=== PATIENT | male | born 1945 | race Caucasian/White ===

== ENCOUNTER 2022-01-05 11:40 | Day surgery (SDC) | payer BC ==
[~2022-01-05] VITALS: Ht 177.8 cm; Wt 88.9 kg
[~2022-01-05 11:40] MED LIST: ABAT250V; ATEN50; CARB25; LORA.5; Maxidex15 ML
[2022-01-05] MEDS ORDERED: LATA.005SO (12:23)
[2022-01-05] MEDS ORDERED: OMEP20ER (12:24)
[2022-01-05] MEDS ORDERED: TRIA50 (12:24)
[2022-01-05] MEDS ORDERED: LORA1SY (12:26)
[2022-01-05] MEDS ORDERED: POTASSIUM GLU2.5 MEQ (12:26)
== END 2022-01-05 13:58 | disposition home or self-care (01) ==
LOC: ORSCSDS 11:40
PROVIDERS: Internal Medicine Gastroenterology
PROC: 0DJD8ZZ Inspection of Lower Intestinal Tract, Via Natural or Artificial Opening Endoscopic (ICD-10-PCS; principal; 2022-01-05 13:00)
DX: Z12.11 Encounter for screening for malignant neoplasm of colon (principal); Z86.010 Personal history of colon polyps; K57.30 Diverticulosis of large intestine without perforation or abscess without bleeding; G47.33 Obstructive sleep apnea (adult) (pediatric); Z95.0 Presence of cardiac pacemaker; Z87.891 Personal history of nicotine dependence
CPT/HCPCS: J2704; J7120

== ENCOUNTER → 2022-07-08 | Outpatient (CLI) | payer BC ==
[~2022-07-08] MED LIST changes: +LATA.005SO; +LORA1SY; +OMEP20ER; +POTASSIUM GLU2.5 MEQ; +TRIA50
[2022-07-14 12:10] LABS: M-SPIKE, % Not Observed % (Not Observed); PROTEIN,TOTAL,URINE <4.0 mg/dL (Not Estab.)
== END | disposition home or self-care (01) ==
LOC: LAB SHORT 11:00 → LAB 11:00
PROVIDERS: Internal Medicine Hematology & Oncology
DX: D75.1 Secondary polycythemia (principal); N18.2 Chronic kidney disease, stage 2 (mild); M54.16 Radiculopathy, lumbar region
CPT/HCPCS: 84156; 84166

== ENCOUNTER → 2022-07-08 | Outpatient (CLI) | payer BC ==
[2022-07-08 20:03] LABS: Albumin, Blood 3.7 g/dL (3.4-5.0); Albumin/Globulin Ratio 1.2 (0.8-1.8); Calcium, Blood 9.5 mg/dL (8.5-10.1); Creatinine, Blood 0.95 mg/dL (0.60-1.20); Globulin, Blood 3.1 g/dL (2.2-4.0); Phosphorus, Blood 1.8 mg/dL (2.5-4.9); Potassium, Blood 3.4 mmol/L (3.5-5.5); Total Protein, Blood 6.8 g/dL (6.4-8.2)
[2022-07-10 15:11] LABS: A/G RATIO 1.6 (0.7-1.7); ALBUMIN 4.2 g/dL (2.9-4.4); ALPHA-1-GLOBULIN 0.2 g/dL (0.0-0.4); ALPHA-2-GLOBULIN 0.7 g/dL (0.4-1.0); BETA GLOBULIN 1.1 g/dL (0.7-1.3); GAMMA GLOBULIN 0.8 g/dL (0.4-1.8); GLOBULIN, TOTAL 2.8 g/dL (2.2-3.9); IMMUNOGLOBULIN A, QN, SERUM 356 mg/dL (61-437); IMMUNOGLOBULIN G, QN, SERUM 771 mg/dL (603-1613); IMMUNOGLOBULIN M, QN, SERUM 103 mg/dL (15-143); M-SPIKE 0.2 g/dL (Not Observed)
== END | disposition home or self-care (01) ==
LOC: LAB SHORT 11:00
PROVIDERS: Internal Medicine Hematology & Oncology
DX: N18.2 Chronic kidney disease, stage 2 (mild) (principal); D75.1 Secondary polycythemia; M54.16 Radiculopathy, lumbar region
CPT/HCPCS: 80053; 84100

== ENCOUNTER → 2024-11-21 | Outpatient (CLI) | payer BC ==
[2024-11-21 17:20] LABS: Creatinine, Urine Random 67.7 mg/dL (27.00-270.00)
[2024-11-21 17:24] LABS: Microalb/Creat Ratio UR, Rand 23.781 mg/g (0.000-30.000); Microalbumin, Random Urine 16.1 mg/L (0.000-20.000)
== END ==
LOC: LAB SHORT 12:24 → LAB 12:24
PROVIDERS: Family Medicine
DX: E11.65 Type 2 diabetes mellitus with hyperglycemia (principal)
CPT/HCPCS: 82043; 82570